=== PATIENT | male | born 1995 | race Caucasian/White ===

== ENCOUNTER 2021-12-09 16:16 | Outpatient (REF) | payer OTHER, SELFPAY ==
[2021-12-09 18:21] LABS: Alanine Aminotransferase 48 U/L (0-40); Albumin Level 4.6 g/dL (3.5-5.0); Alkaline Phosphatase 44 U/L (39-117); Anion Gap 13 (12-20); Aspartate Amino Transferase 31 U/L (5-37); Bilirubin Total 0.6 mg/dL (0.0-1.0); Blood Urea Nitrogen 12 mg/dL (9-16); Calcium 9.5 mg/dL (8.4-10.2); Carbon Dioxide 29 mmol/L (22-29); Chloride 101 mmol/L (96-108); Cholesterol 195 mg/dL; Estimated Glomerular Filt Rate > 60; Glucose Fasting 168 mg/dL (60-99); HDL Cholesterol 32 mg/dL; LDL Cholesterol Calculated 138 mg/dl; Potassium 4.3 mmol/L (3.3-5.1); Sodium 139 mmol/L (135-145); Total Protein 6.8 g/dL (6.5-8.0); Triglycerides 129 mg/dL
[2021-12-09 18:44] LABS: TSH reflex Free T4 4.36 uIU/mL (0.32-4.0)
[2021-12-09 19:17] LABS: Free T4 (Free Thyroxine) 1.07 ng/dL (0.71-1.85)
[2021-12-10 07:40] LABS: HBS Num1 40.88 mIU/mL (0-7.99); HBc Num1 0.04 S/CO (0.00-0.79); HBsAGNum1 0.18 S/CO (0.00-0.99); HIV AB/AG Nonreactive (Nonreactive); HIV Num 1 0.05 S/CO (0.00-0.99); Hepatitis B Core Antibody Nonreactive (Nonreactive); Hepatitis B Surface Antigen Negative (Negative); ~HepC Num1 0.05 S/CO (0.00-0.79); ~Hepatitis B Surface Antibody REACTIVE (Nonreactive); ~Hepatitis C Antibody Nonreactive (Nonreactive)
[2021-12-10 08:21] LABS: Syphilis Screen Nonreactive (Nonreactive)
== END 2021-12-09 16:17 | disposition home or self-care (01) ==
LOC: HO.LAB 16:16
PROVIDERS: PCP Family Medicine; Visit Provider Family Medicine
DX: Z00.00 Encounter for general adult medical examination without abnormal findings (principal); Z11.3 Encounter for screening for infections with a predominantly sexual mode of transmission; Z13.29 Encounter for screening for other suspected endocrine disorder; Z11.4 Encounter for screening for human immunodeficiency virus [HIV]; Z11.59 Encounter for screening for other viral diseases
CPT/HCPCS: 36415; 80053; 80061; 84439; 84443; 86704; 86706; 86780; 86803; 87340; 87389

== ENCOUNTER 2022-05-27 11:13 | Outpatient (REF) | payer OTHER, SELFPAY ==
[2022-05-27 12:56] LABS: Alanine Aminotransferase 44 U/L (0-40); Albumin Level 4.5 g/dL (3.5-5.0); Alkaline Phosphatase 55 U/L (39-117); Aspartate Amino Transferase 28 U/L (5-37); Bilirubin Direct 0.2 mg/dL (0.0-0.5); Bilirubin Total 0.9 mg/dL (0.0-1.0); Free T4 (Free Thyroxine) 0.92 ng/dL (0.71-1.85); Thyroid Stimulating Hormone 1.13 uIU/mL (0.32-4.0); Total Protein 6.6 g/dL (6.5-8.0)
[2022-05-27 14:45] LABS: Appearance Urine Clear; Color Urine Yellow; Glucose Urine UA >=1000 mg/dL (Negative); Leukocyte Esterase Urine Negative (Negative); Nitrite Urine Negative (Negative); PH 5.5 (5.0-9.0); UMIC TRIGGER UA YES; Urine Blood Negative (Negative); Urine Ketones Negative (Negative); Urine Protein Negative (Neg-Trace)
[2022-05-27 14:50] LABS: Bacteria Urine None Seen (None Seen); Hyaline Casts Urine 0-2 /LPF (0-2); RBC Urine 0-2 /HPF (0-2); Squamous Epithelial Cell Urine 0-2 /HPF (0-2); WBC Urine 0-5 /HPF (0-5)
[2022-05-28 07:23] LABS: Triiodothyronine T3 Total 101 ng/dL (76-181)
== END 2022-05-27 11:14 | disposition home or self-care (01) ==
LOC: HO.LAB 11:13
PROVIDERS: PCP Family Medicine; Visit Provider Family Medicine
DX: E03.9 Hypothyroidism, unspecified (principal); R79.89 Other specified abnormal findings of blood chemistry; R74.01 Elevation of levels of liver transaminase levels
CPT/HCPCS: 36415; 80076; 81001; 84439; 84443; 84480

== ENCOUNTER 2023-01-12 15:25 | Outpatient (AMB) | payer OTHER, SELFPAY ==
--- NOTE | 2023-01-12 15:42 | A.OFFPC_ITS ---
Vital Signs 01/12/23 15:44 Height 5 ft 5 in Weight 266 lb BMI 44.3 BP 114/66 Blood Pressure Location Lt brachial Position Sitting Pulse 86 Pulse Source Pulse Oximeter Pulse Oximetry (%) 99 Oxygen Delivery Method Room Air Intake Visit Reasons: f/u diabetes Intake Note: Patient is here to follow up on his diabetes. Allergies No Known Allergies Allergy (Verified 01/12/23 15:45) none Allergy (Mild, Uncoded 01/12/23 15:45) unknkown Seasonale Allergy (Mild, Uncoded 01/12/23 15:45) unknown Tobacco use date assessed: 01/12/23 Dental Screening Dental Screen Date: 01/12/23 Did you have a dental visit in the last 12 months?: Yes Did you have a dental problem in the last 6 months where you did not have access to dental care?: No Was dental information given to patient?: No HPI f/u diabetes HPI Details 27 y/o male presents to f/u diabetes. Last A1c 09/09/22 was 6.8%. A1c today 01/12/23 is 7.9%. He is on glipizide 5mg, metformin 250mg b.i.d. He reports he has not been consistent with his metformin as he has been busy the last few months. He does not test his blood sugars at home. [facility] Medical History Diabetes Surgical History History of tonsillectomy Family History Mother Mental health disorder Sister Mental health disorder Brother Mental health disorder Social History Housing: House Patient Tobacco Use Status: Never used Tobacco e-Cigarette/Vaping Use: Never Used Second Hand Smoke Exposure: No service: No Current occupational status: employed Current occupational exposures/hazards: No Cognitive needs: No Hearing needs: No Vision needs: No Questionnaire Thrive Questionnaire Date Thrive assessed: 10/23/21 LISA-7 AMB Questionnaire LISA-7 Date LISA - 7 assessed: 10/23/21 Source: Developed by Drs. Dimas Horton, Kimberly Downey, Bakari Lopez and colleagues, with an educational kobe from [employer]. Review of Systems Const Denies chills, Denies fatigue, Denies fever(s), Denies headache(s) and Denies weakness ENT Denies dizziness and Denies headache(s) Card Denies chest pain, Denies lightheadedness, Denies dyspnea and Denies other (Palpitations) Resp Denies cough, Denies dyspnea, Denies wheezing and Denies other ( shortness of breath) Musc Denies numbness and Denies tingling Neuro Denies dizziness, Denies headache(s), Denies numbness, Denies tingling, Denies paresthesias and Denies weakness Psych Denies anxiety and Denies depression Endo Denies fatigue Aller/Immun Denies wheezing Physical exam (Primary Care) Vital Signs: Last Vital Signs Pulse 86 01/12/23 15:44 BP 114/66 01/12/23 15:44 Pulse Ox 99 01/12/23 15:44 Oxygen Delivery Method Room Air 01/12/23 15:44 BMI result Body Mass Index 44.3 Tobacco/Smoking Status: Tobacco use Status Tobacco use date assessed 01/12/23 01/12/23 15:46 Patient Tobacco Use Status Never used Tobacco 01/12/23 15:44 e-Cigarette/Vaping Use Never Used 01/12/23 15:44 Thrive Assessment: Date of Thrive Assessment Date Thrive assessed 10/23/21 01/12/23 15:44 Const General: no acute distress and well developed Nutritional Appearance: obese morbidly obese Orientation/consciousness: patient oriented x3 HENMT Head: Yes normocephalic and Yes atraumatic Eyes General: appearance normal, both eyes and all related structures Pupils: Equal, round and reactive pupils present EOM: EOMs intact bilaterally Resp Effort & Inspection: normal respiratory effort Auscultation: clear to auscultation bilaterally Cardio Rate: regular rate Rhythm: regular rhythm Heart sounds: S1 normal heart sound present, S2 normal heart sound present, no gallops, no murmurs and no rubs Neuro General: patient oriented x3 and gait normal Cranial nerves: Yes Equal, round and reactive pupils present Psych Affect: normal affect Results AMB Hemoglobin A1c AMB Hemoglobin A1c 7.9 % Last Edit by Sasha Mcgill CMA on 01/12/23 16:20 Results Reviewed Results Reviewed: Laboratory Last Values Hgb A1c (Clinic) 7.9 % (4.0-6.0) H 01/12/23 16:19 Assessment and Plan Assessment & Plan (1) Diabetes: Code(s): E11.9 - Type 2 diabetes mellitus without complications Plan: A1c significantly increased at 7.9% He notes that he has been forgetting to take his medication and that he has only been taking metformin 250 mg in the morning rather than b.i.d.. Will try to simplify his regimen while increasing metformin. He will take metformin 500 mg daily and glipizide 5 mg daily, both in the morning He will work at a diabetic diet and weight loss We also discussed Trulicity. He would like to try the above regimen 1st but says we can reconsider this if he is still having difficulty. Orders: Orders AMB Hemoglobin A1c Today Z13.9 - Encounter for screening, unspecified Medications: Changed From metformin 250 mg (1/2 x 500 mg) PO BID 30 days 30 tabs 2RF To metformin 500 mg PO QAM 30 days 30 tabs 2RF Refilled glipizide 5 mg PO DAILY 30 tabs 1RF 30 days Coding Level of Care Code Est Pt Level 3 (29023) Diagnoses Diabetes E11.9
[2023-01-12 15:44] VITALS: BP 114/66; PULSE 86; O2SAT 99; BMI 44.3
== END 2023-01-12 16:31 | disposition home or self-care (01) ==
PROVIDERS: PCP Family Medicine; Visit Provider Family Medicine
DX: E11.9 Type 2 diabetes mellitus without complications (principal); Z13.9 Encounter for screening, unspecified
CPT/HCPCS: 83036; 99213

== ENCOUNTER 2023-03-31 11:25 | Outpatient (REF) | payer OTHER, SELFPAY ==
[2023-03-31 14:19] LABS: Alanine Aminotransferase 40 U/L (0-40); Albumin Level 4.5 g/dL (3.5-5.0); Alkaline Phosphatase 42 U/L (39-117); Anion Gap 12 (12-20); Aspartate Amino Transferase 27 U/L (5-37); Bilirubin Total 0.7 mg/dL (0.0-1.0); Blood Urea Nitrogen 9 mg/dL (9-16); Calcium 8.9 mg/dL (8.4-10.2); Carbon Dioxide 26 mmol/L (22-29); Chloride 104 mmol/L (96-108); Estimated Glomerular Filt Rate > 60; Glucose Fasting 118 mg/dL (60-99); Potassium 4.2 mmol/L (3.3-5.1); Sodium 138 mmol/L (135-145); Total Protein 6.8 g/dL (6.5-8.0)
== END 2023-03-31 11:26 | disposition home or self-care (01) ==
LOC: HO.LAB 11:25
PROVIDERS: PCP Family Medicine; Visit Provider Family Medicine
DX: Z00.00 Encounter for general adult medical examination without abnormal findings (principal); R74.01 Elevation of levels of liver transaminase levels
CPT/HCPCS: 36415; 80053

== ENCOUNTER 2023-06-01 11:22 | Outpatient (AMB) | payer OTHER, SELFPAY ==
--- NOTE | 2023-06-01 11:32 | MHC.PC.OV ---
Vital Signs 06/01/23 11:33 Height 5 ft 5 in Weight 157 lb BMI 26.1 BP 112/60 Blood Pressure Location Lt brachial Position Sitting Respiration 13 Pulse 94 Pulse Source Pulse Oximeter Pulse Oximetry (%) 98 Oxygen Delivery Method Room Air Intake Visit Reasons: f/u diabetes Intake Note: Patient reports he has not been able to receive his medications for about 3 weeks now. Patient admits to having difficulties with diet control around the holidays. 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 A1c today 06/01/23 7.7%. He is on metformin 500mg and glipizide 5mg daily. He notes he has not been able to take his meds the last 3 weeks. Pt notes he had hurt his R shoulder 3 months ago helping a friend move. Pain has been intermittent. [facility] Medical History Diabetes Surgical History History of tonsillectomy Family History Mother Mental health disorder Sister Mental health disorder Brother Mental health disorder Social History Housing: House Patient Tobacco Use Status: Never used Tobacco e-Cigarette/Vaping Use: Never Used Second Hand Smoke Exposure: No service: No Current occupational status: employed Current occupational exposures/hazards: No Cognitive needs: No Hearing needs: No Vision needs: No Questionnaire Thrive Questionnaire Date Thrive assessed: 10/23/21 LISA-7 AMB Questionnaire LISA-7 Date LISA - 7 assessed: 10/23/21 Source: Developed by Drs. Dimas Horton, Kimberly Downey, Bakari Lopez and colleagues, with an educational kobe from [employer]. Physical exam (Primary Care) Vital Signs: Last Vital Signs Pulse 94 06/01/23 11:33 Resp 13 06/01/23 11:33 BP 112/60 06/01/23 11:33 Pulse Ox 98 06/01/23 11:33 Oxygen Delivery Method Room Air 06/01/23 11:33 BMI result Body Mass Index 26.1 Tobacco/Smoking Status: Tobacco use Status Tobacco use date assessed 01/12/23 06/01/23 11:34 Patient Tobacco Use Status Never used Tobacco 06/01/23 11:34 e-Cigarette/Vaping Use Never Used 06/01/23 11:34 Thrive Assessment: Date of Thrive Assessment Date Thrive assessed 10/23/21 06/01/23 11:34 Results AMB Hemoglobin A1c AMB Hemoglobin A1c 7.7 % Last Edit by Yane Arevalo CMA on 06/01/23 11:48 Results Reviewed Results Reviewed: Laboratory Last Values Hgb A1c (Clinic) 7.7 % (4.0-6.0) H 06/01/23 11:45 Assessment and Plan Assessment & Plan (1) Diabetes: Code(s): E11.9 - Type 2 diabetes mellitus without complications Plan: A1c?7.7%?which?is?poor?control.??Goal?is?less?than?7.0% Resume?metformin?and?will?add?Trulicity. Can?stop?glipizide We?discussed?that?if?he?is?unable?to?get?Trulicity?covered?by?insurance,?he?will?resume?glipizide?as?well?and?we?will?follow-up?at?his?next?visit. Will?request?note?from?his?neurological surgeon (2) Right shoulder pain: Code(s): M25.511 - Pain in right shoulder Plan: Start?physical?therapy If?not?improving,?will?image?and?make?referral?to?Ortho (3) Tenosynovitis of left hand: Code(s): M65.9 - Synovitis and tenosynovitis, unspecified Plan: Ongoing?tendinitis,?tenosynovitis?or?carpal?tunnel?of?bilateral?hands. Had?been?referred?to?Hand?surgery?but?has?not?heard?from?them. Renewed?referral.??Gave?him?phone?number Orders: Orders PT Evaluation and Treatment Today M25.511 - Pain in right shoulder AMB Hemoglobin A1c Today Z13.9 - Encounter for screening, unspecified Medications: New dulaglutide (Trulicity) 0.75 mg (0.5 mL) subcut QWEEK 28 days 2 mL 2RF Refilled metformin 500 mg PO QAM 30 days 30 tabs 2RF Coding Level of Care Code Est Pt Level 4 (04467) Diagnoses Diabetes E11.9 Right shoulder pain M25.511 Tenosynovitis of left hand M65.9
[2023-06-01 11:33] VITALS: BP 112/60; PULSE 94; RESP 13; O2SAT 98; BMI 26.1
== END 2023-06-01 12:39 | disposition home or self-care (01) ==
PROVIDERS: PCP Family Medicine; Visit Provider Family Medicine
DX: E11.9 Type 2 diabetes mellitus without complications (principal); M25.511 Pain in right shoulder; M65.9 Synovitis and tenosynovitis, unspecified
CPT/HCPCS: 83036; 99214

== ENCOUNTER 2023-06-27 08:23 | Emergency (ER) | payer OTHER, SELFPAY ==
--- NOTE | ~2023-06-27 | XR_ITS ---
EXAMINATION: XR TIBIA/FIBULAR, RIGHT XR ANKLE, RIGHT CLINICAL INFORMATION: Right lower leg and right ankle pain. Injury. COMPARISON: None. TECHNIQUE: AP and lateral views of the right tibia and fibula. AP and lateral views of the right ankle. FINDINGS: Right tibia and fibula: No acute fracture or dislocation. No periosteal reaction or cortical erosion. No abnormal soft tissue calcification. Right ankle: Nondisplaced, transverse fracture through the distal fibula/lateral malleolus. No additional fracture. No dislocation. The ankle mortise is maintained. No joint space narrowing or marginal osteophytes. No osseous erosion. Tiny dorsal calcaneal enthesophyte. Circumferential soft tissue swelling. XR/XR tibia fibula RT 2V IMPRESSION: Nondisplaced, transverse fracture through the distal fibula/lateral malleolus. Circumferential soft tissue swelling.
--- NOTE | ~2023-06-27 | XR_ITS ---
EXAMINATION: XR TIBIA/FIBULAR, RIGHT XR ANKLE, RIGHT CLINICAL INFORMATION: Right lower leg and right ankle pain. Injury. COMPARISON: None. TECHNIQUE: AP and lateral views of the right tibia and fibula. AP and lateral views of the right ankle. FINDINGS: Right tibia and fibula: No acute fracture or dislocation. No periosteal reaction or cortical erosion. No abnormal soft tissue calcification. Right ankle: Nondisplaced, transverse fracture through the distal fibula/lateral malleolus. No additional fracture. No dislocation. The ankle mortise is maintained. No joint space narrowing or marginal osteophytes. No osseous erosion. Tiny dorsal calcaneal enthesophyte. Circumferential soft tissue swelling. XR/XR ankle RT min 3V IMPRESSION: Nondisplaced, transverse fracture through the distal fibula/lateral malleolus. Circumferential soft tissue swelling.
--- NOTE | ~2023-06-27 | XR_ITS ---
EXAMINATION: XR FOOT, RIGHT CLINICAL INFORMATION: Crush injury to the right foot. COMPARISON: Right ankle x-rays of 06/27/2023. TECHNIQUE: AP, lateral, and oblique views of the right foot. FINDINGS: There is no evidence of acute fracture or dislocation. No focal erosion. Small tear calcaneal spur is noted at the insertion of plantar aponeurosis. No evidence of soft tissue air or radiopaque foreign body. The osseous structures grossly appear unremarkable. No degenerative or arthritic changes are seen. XR/XR foot RT min 3V IMPRESSION: No evidence of acute fracture or dislocation in the right foot. Right distal fibular nondisplaced fracture noted on the ankle radiographs is not appreciated on these foot radiographs.
[2023-06-27 08:33] VITALS: BP 143/79; PULSE 85; RESP 16; TEMP 36.2; O2SAT 97; BMI 42.3
--- NOTE | 2023-06-27 09:34 | ED_ITS ---
HPI - Extremity Injury (Lower) General Chief Complaint: Extremity Injury, Lower Stated Complaint: R foot inj-work related Time Seen by Provider: 06/27/23 09:04 Source: patient, RN notes reviewed and old records reviewed Mode of arrival: ambulatory History of Present Illness HPI Narrative: 28-year-old male with a past medical history of anxiety, depression, diabetes, HLD, presenting to the ED complaining of right foot/ankle/lower leg pain and swelling s/p being crushed between a Pallet [employer]omy and trailer 2 days ago at work. Reports increasing pain, difficulty ambulating secondary to pain. Denies numbness, tingling, injury to other area Related Data Previous Rx's Medication Instructions Recorded glipizide 5 mg tablet 5 mg PO DAILY 30 days #30 tabs 01/12/23 dulaglutide 0.75 mg/0.5 mL 0.75 mg (0.5 mL) subcut QWEEK 28 06/01/23 subcutaneous pen injector days #2 mL (Trulicity) metformin 500 mg tablet 500 mg PO QAM 30 days #30 tabs 06/01/23 Allergies Allergy/AdvReac Type Severity Reaction Status Date / Time No Known Allergies Allergy Verified 06/27/23 08:33 Review of Systems Review of Systems: Constitutional: No Fever, No Chills ENT/Mouth: No Ear Pain, No Nasal Congestion, No sore throat, No Rhinorrhea, No Swallowing Difficulty Cardiovascular: No Chest Pain, No SOB Respiratory: No Cough Gastrointestinal: No Nausea, No Vomiting, No Abdominal pain Musculoskeletal: + joint pain, No Myalgias, + Joint Swelling Skin: No Skin Lesions, No rash Neuro: No Weakness, No Numbness, No Paresthesias Yes all other systems are reviewed and are negative Constitutional: Constitutional: Reports as per HPI [facility] Past Medical History Attestation statement: The following information was validated with the patient. Source: old records reviewed Medical History Diabetes Surgical History History of tonsillectomy Family History Family History Mother Mental health disorder Sister Mental health disorder Brother Mental health disorder Social History Social History Housing: House Patient Tobacco Use Status: Never used Tobacco e-Cigarette/Vaping Use: Never Used Second Hand Smoke Exposure: No Advance Directives: No service: No Current occupational status: employed Current occupational exposures/hazards: No Cognitive needs: No Hearing needs: No Vision needs: No Physical Exam Vital Signs: Vital Signs: Last Vital Signs Temp 97.2 F 06/27/23 08:33 Pulse 85 06/27/23 08:33 Resp 16 06/27/23 08:33 BP 143/79 H 06/27/23 08:33 Pulse Ox 97 06/27/23 08:33 O2 Del Method Room Air 06/27/23 08:33 BMI result Body Mass Index 42.3 Const: General: cooperative, healthy appearing and no acute distress Orientation/consciousness: patient oriented x3 Limitations: no limitations HEENT: Head: Yes normal to inspection and Yes atraumatic Ears: hearing grossly normal bilaterally General nose exam: Normal external nose present Face and sinus: Yes normal facial exam Eyes: General: appearance normal, both eyes and all related structures EOM: EOMs intact bilaterally Neck: Neck: Yes normal visual inspection and Yes no meningeal signs Resp: Effort & Inspection: normal respiratory effort and no respiratory distress Cardio: Rate: regular rate Skin: Rashes: no rashes Wounds: no wounds Neuro: General: patient oriented x3, tone normal and no meningeal signs Cranial nerves: Yes CN's II-XII intact bilaterally Gait exam (Neuro): Normal gait present Extrem: Other: Right lower tib-fib/ankle and foot with noted swelling, diffusely tender to palpation, greatest to lateral aspect. Limited ROM to ankle secondary to pain. No erythema/warmth. Neurovascularly intact. No crepitus Course Course Course Narrative: XR tibia fibula RT 2V/XR ankle RT min 3V IMPRESSION: Nondisplaced, transverse fracture through the distal fibula/lateral malleolus. Circumferential soft tissue swelling XR foot RT min 3V IMPRESSION: No evidence of acute fracture or dislocation in the right foot. Right distal fibular nondisplaced fracture noted on the ankle radiographs is not appreciated on these foot radiographs. > posterior short leg w/stirrup placed & patient supplied with crutches Results discussed with patient including worrisome signs and symptoms and strict return precautions, and when to return to the emergency department. They verbalized understanding and feel safe for discharge at this time. Medical Decision Making Medical Decision Making MDM Narrative: 28-year-old male with a past medical history of anxiety, depression, diabetes, HLD, presenting to the ED complaining of right foot/ankle/lower leg pain and swelling s/p being crushed between a Pallet [employer] and trailer 2 days ago at work. On exam vital signs stable, NAD, nontoxic appearing with physical exam as noted above. Concern for sprain versus fracture. No evidence of septic joint/arthritis. Unlikely DVT Plan: X-rays Please refer to course for remaining clinical decision making, interpretation of labs/imaging results, and discussions with consultants and/or family members. Differential Diagnosis Differential Diagnoses: The differential diagnosis associated with the presentation includes As above Independent Interpretation I performed an independent interpretation of an: Plain X-Ray Radiology Impression Discussion of test interpretation with radiology: I have reviewed the radiologist's reading. External Record Review External record reviewed: Inpatient record, Office record, Outpatient record, Prior outpatient labs, Prior outpatient radiology, Primary care record and Outside ED record Tests considered The following testing was considered but not selected: As above Prescription Management I considered prescription management with: Pain Medication Procedures Orthopedic Splinting/Casting Injury #1: Side: right Lower Extremity Injury Location: ankle Lower Extremity Immobilizer: posterior splint and stirrup splint Other Orthopedic Equipment: crutches Discharge Plan Discharge Clinical Impression: Fracture of lateral malleolus Patient Disposition: Home, Self-Care Instructions: Ankle Fracture (DC) Additional Instructions: you broke your ankle. wear splint, keep dry and clean DO NOT BEAR WEIGHT ON YOUR LEFT LEG UNTIL YOU SEE THE SPECALIST if toes become increasingly swollen, discolored, number pain is unbearable removed plan return to the ED immediately You need to follow-up with [facility] in 1 week, call to make appointment Prescriptions: No Action glipizide 5 mg tablet 5 mg PO DAILY 30 Days Qty: 30 1RF Trulicity 0.75 mg/0.5 mL pen injector 0.75 mg subcut QWEEK 28 Days Qty: 2 2RF metformin 500 mg tablet 500 mg PO QAM 30 Days Qty: 30 2RF Referrals: [facility] Surgeons [Provider Group] - 1 week
[2023-06-27] MEDS: oxyCODONE HCl Immed Release 5 MG TABLET PO (11:43)
[2023-06-27] MEDS: Ondansetron ODT 4 MG TAB.RAPDIS TRANSLINGU (11:44)
== END 2023-06-27 12:06 | disposition home or self-care (01) ==
PROVIDERS: Emergency Provider Emergency Medicine; PCP Family Medicine
DX: S82.61XA Displaced fracture of lateral malleolus of right fibula, initial encounter for closed fracture (principal); E11.9 Type 2 diabetes mellitus without complications; W31.89XA Contact with other specified machinery, initial encounter; Y93.9 Activity, unspecified; Y92.9 Unspecified place or not applicable; Y99.0 Civilian activity done for income or pay
CPT/HCPCS: 29515; 73590; 73610; 73630; 99283

== ENCOUNTER 2023-07-08 10:21 | Outpatient (AMB) | payer OTHER, SELFPAY ==
--- NOTE | 2023-07-08 10:34 | A.OFFVIS_ITS ---
Intake Vital Signs 07/08/23 10:43 Height 5 ft 6 in Weight 262 lb BMI 42.3 Intake Visit Reasons: [employer]- Fx of right ankle Intake Note: Dimas heck 28 year old male presents today for an ER follow up of left ankle, DOI 06/25/23. Patient reports while at work his leg was crushed between a pallet rickey and trailer. He presented to [facility] 2 days later due to his leg pain and swelling. He was placed in a posterior splint and crutches were given. Currently he has constant pain that fluctuates in intensity, located at the lateral aspect of ankle. Intermittent numbness and tingling in his bog toe. Finds relief with ibuprofen. Allergies No Known Allergies Allergy (Verified 07/08/23 10:43) HPI [employer] IN[employer]ER- Fx of right ankle HPI Details 56-year-old female [facility] pain since February after doing home exercises which was instructed by physical therapy for her back. She currently states she has no improvement in her pain and c/o pain in her bicep region which fluctuates in intensity. Her pain is aggravated with activities about 80% of the time. She also reports pain with overhead reaching as well as reaching her sides to pick the remote. She finds relief with Advil most of the time. She has not had any treatment in the past. [facility] Medical History Diabetes Surgical History History of tonsillectomy Family History Mother Mental health disorder Sister Mental health disorder Brother Mental health disorder Social History (Updated 07/08/23 @ 10:40 by MAXIMUS Gomez) Housing: House Patient Tobacco Use Status: Never used Tobacco e-Cigarette/Vaping Use: Never Used Second Hand Smoke Exposure: No service: No Current occupational status: employed Current occupation: [employer] Current occupational exposures/hazards: No Cognitive needs: No Hearing needs: No Vision needs: No Review of Systems Const All systems reviewed & are unremarkable except as noted in HPI and below Physical Exam Vital Signs: BMI result Body Mass Index 42.3 Const General: cooperative, healthy appearing, comfortable, no acute distress, well developed and alert Orientation/consciousness: patient oriented x3 HEENT Head: Yes normal to inspection, Yes normocephalic and Yes atraumatic Eyes General: appearance normal, both eyes and all related structures Resp Effort & Inspection: normal respiratory effort and able to speak in complete sentences Cardio Rate: regular rate Peripheral pulses: Peripheral pulses 2+ throughout GI Palpation (GI): Soft to palpation Skin Lesions: no lesions Rashes: no rashes Neuro General: patient oriented x3 Extrem Other: Right ankle Normal to inspection. He has mild tenderness over the distal fibula. No ecchymosis or swelling. NVI. Office Procedures Fracture Care Fracture Billing Code: Fracture Billing Code Results Reviewed Results Reviewed: Xrays were obtained in the office today and personally reviewed by me of the right ankle show non displaced distal fibular fracture with ankle mortise intact Assessment & Plan Assessment & Plan (1) Closed fracture of left distal fibula: Code(s): S82.832A - Other fracture of upper and lower end of left fibula, initial encounter for closed fracture Qualifiers: Encounter type: initial encounter Fracture morphology: other fracture Qualified Code(s): S82.832A - Other fracture of upper and lower end of left fibula, initial encounter for closed fracture Plan He was given a tall boot weight bearing as tolerated. He can remove the boot for hygiene, resting and sleeping. I did put in an order for physical therapy to work on stretching exercises and iontophoresis. He will return to work tomorrow, sedentary work only with opportunity to ice and elevate the right leg as needed. I would like to see him back in 4-6 weeks with x-rays, sooner if needed. Orders: Orders XR ankle RT min 3V Today M25.571 - Pain in right ankle and joints of right foot PT Evaluation and Treatment Today S82.832A - Other fracture of upper and lower end of left fibula, initial encounter for closed fracture Medications: Changed From ibuprofen 800 mg PO Q8H PRN 14 tabs 0RF pain To ibuprofen 800 mg PO Q8H PRN 90 tabs 0RF pain 30 days Patient Instructions: Scribed for Dione Peraza PA-C, by Rojelio Ramírez director biomedical engineering, on 07/08/2023 at 10:30 AM ROSSY. Dione Long PA-C, have personally reviewed and agree with the information entered by the scribe. Coding Level of Care Code New Pt Level 3 (04004) Diagnoses Other closed fracture of distal end of left fibula, initial encounter S82.832A Encounter type: initial encounter Fracture morphology: other fracture CPT Codes Fracture Care - Fracture Billing Code: Fracture Billing Code ([id number])
[2023-07-08 10:43] VITALS: BMI 42.3
== END 2023-07-08 11:14 | disposition home or self-care (01) ==
PROVIDERS: PCP Family Medicine; Visit Provider Physician Assistant
DX: S82.65XA Nondisplaced fracture of lateral malleolus of left fibula, initial encounter for closed fracture (principal); Z04.2 Encounter for examination and observation following work accident
CPT/HCPCS: 99203

== ENCOUNTER 2023-07-08 12:36 | Outpatient (REF) | payer OTHER, SELFPAY ==
--- NOTE | ~2023-07-08 | XR_ITS ---
EXAMINATION: XR ANKLE, RIGHT CLINICAL INFORMATION: Pain of ankle and joints of foot COMPARISON: 06/27/2023 TECHNIQUE: AP, lateral, and mortise views of the right ankle. FINDINGS: Interval decreased soft tissue swelling around the ankle. Again noted is a transverse fracture of the distal fibula (Mcbride A injury) with distal fibular fragment remaining in anatomic position. Currently, there is no visible callus formation. There is no bridging bone formation at the fracture site. The talar dome is well-positioned within the mortise. The visualized bones of the proximal foot are intact and have normal alignment. XR/XR ankle RT min 3V IMPRESSION: Interval decreased soft tissue swelling at the right ankle. The distal fibular fragment remains in anatomic position. Currently, no evidence of fracture healing.
== END 2023-07-08 12:37 | disposition home or self-care (01) ==
LOC: HO.HOSX 12:36
PROVIDERS: Visit Provider Physician Assistant
DX: S82.832A Other fracture of upper and lower end of left fibula, initial encounter for closed fracture (principal); M25.511 Pain in right shoulder; W23.0XXA Caught, crushed, jammed, or pinched between moving objects, initial encounter; Y93.9 Activity, unspecified; Y92.9 Unspecified place or not applicable; Y99.0 Civilian activity done for income or pay
CPT/HCPCS: 73610; 99202

== ENCOUNTER 2023-08-05 09:34 | Outpatient (REF) | payer OTHER, SELFPAY ==
--- NOTE | ~2023-08-05 | XR_ITS ---
EXAMINATION: XR ANKLE, LEFT CLINICAL INFORMATION: Pain. COMPARISON: Prior radiographs, most recently 07/08/2023. TECHNIQUE: AP, lateral, and mortise views of the left ankle. FINDINGS: There is stable alignment of a mildly displaced transverse fracture of the distal right fibula. The ankle mortise remains intact. There is no dislocation or joint effusion. Boehler's angle is normal. There is a minimal posterior calcaneal spur. There is mild soft tissue swelling adjacent to the lateral malleolus. No focal soft tissue gas or foreign body is seen. XR/XR ankle LT min 3V IMPRESSION: There is stable alignment of a mildly displaced fracture of the distal right fibula. There is mild adjacent soft tissue swelling.
== END 2023-08-05 09:35 | disposition home or self-care (01) ==
LOC: HO.HOSX 09:34
PROVIDERS: Visit Provider Physician Assistant
DX: S82.832A Other fracture of upper and lower end of left fibula, initial encounter for closed fracture (principal)
CPT/HCPCS: 73610; 99212

== ENCOUNTER 2023-08-05 12:00 | Outpatient (AMB) | payer OTHER, SELFPAY ==
--- NOTE | 2023-08-05 12:30 | MHC.OFFVIS ---
Intake Intake Visit Reasons: OV-Right dis fib fx w xrays Intake Note: Dimas heck 28 year old male presents today for a follow up of right distal fibula fx, DOI --. Patient reports having tenderness to the touch, states pain level is 1-2 out of 10. Continues to wear walking boot as instructed. He not started PT. Allergies No Known Allergies Allergy (Verified 08/05/23 12:34) HPI OV-Right dis fib fx w xrays HPI Details 28-year-old gentleman returns to the office for a follow-up right ankle fracture. He has been ambulating weight-bearing as tolerated with the boot he states that he has no pain with walking he only feels mild discomfort occasionally. He has no concerns today. [facility] Medical History Diabetes Surgical History History of tonsillectomy Family History Mother Mental health disorder Sister Mental health disorder Brother Mental health disorder Social History Housing: House Patient Tobacco Use Status: Never used Tobacco e-Cigarette/Vaping Use: Never Used Second Hand Smoke Exposure: No service: No Current occupational status: employed Current occupation: [employer] Current occupational exposures/hazards: No Cognitive needs: No Hearing needs: No Vision needs: No Review of Systems Const All systems reviewed & are unremarkable except as noted in HPI and below Physical Exam Const General: cooperative and no acute distress Orientation/consciousness: patient oriented x3 Resp Effort & Inspection: normal respiratory effort and able to speak in complete sentences Cardio Peripheral pulses: Peripheral pulses 2+ throughout Neuro General: patient oriented x3 Extrem Other: Right ankle normal to inspection. No swelling or ecchymosis. He has no tenderness along the lateral malleolus or the soft tissues. Has full range of motion without crepitus or laxity. Neurovascularly intact. Results Reviewed Results Reviewed: X-rays of the right ankle obtained in the office today show interval healing through the distal fibular fracture with ankle mortise intact. Assessment & Plan Assessment & Plan (1) Closed fracture of left distal fibula: Code(s): S82.832A - Other fracture of upper and lower end of left fibula, initial encounter for closed fracture Qualifiers: Encounter type: initial encounter Fracture morphology: other fracture Qualified Code(s): S82.832A - Other fracture of upper and lower end of left fibula, initial encounter for closed fracture Plan: He was transitioned to a lace-up ankle brace which he will wear with a shoe weightbearing as tolerated will return to work on August 09 however he will avoid any lifting pushing pulling or carrying greater than 5 lb for the next 4-6 weeks. At which point he will see me back for a follow-up with new x-rays. A new order for physical therapy has been placed and I did stress the importance of contacting them to schedule an appointment to work on range of motion gentle strengthening proprioceptive training. Orders: Orders XR ankle LT min 3V Today M25.572 - Pain in left ankle and joints of left foot Coding Level of Care Code Global (44963) Diagnoses Other closed fracture of distal end of left fibula, initial encounter S82.832A Encounter type: initial encounter Fracture morphology: other fracture
== END 2023-08-05 13:07 | disposition home or self-care (01) ==
PROVIDERS: PCP Family Medicine; Visit Provider Physician Assistant
DX: S82.831A Other fracture of upper and lower end of right fibula, initial encounter for closed fracture (principal)
CPT/HCPCS: 99213

== ENCOUNTER 2023-09-01 11:18 | Outpatient (AMB) | payer OTHER, SELFPAY ==
[2023-09-01 11:58] VITALS: BP 131/72; PULSE 68; O2SAT 94; BMI 43.8
--- NOTE | 2023-09-01 11:58 | A.OFFPC_ITS ---
Vital Signs 09/01/23 11:58 Height 5 ft 6 in Weight 271 lb 8 oz BMI 43.8 BP 131/72 Blood Pressure Location Lt brachial Pulse 68 Pulse Source Pulse Oximeter Pulse Oximetry (%) 94 Intake Visit Reasons: f/u diabetes Intake Note: Patient is here today to follow up on diabetes. Allergies No Known Allergies Allergy (Verified 09/01/23 12:00) Tobacco use date assessed: 09/01/23 HPI f/u diabetes HPI Details 28 y/o male presents to f/u diabetes. Had started him on Trulicity and increased his metformin. Last A1c 06/01/23 7.7%. A1c today 09/01/23 is 9.9%. Pt states he has picked up his Trulicity but has not trialed it yet as he had be en anxious about taking it. He has also stopped taking his glipizide 5mg daily so he has only been taking metformin. HPI Comments History of Present Illness Details Documentation assistance for Iggy Martinez MD, was provided by Jarvis Guillen, [employer]urtass Analyst on 09/01/2023 12:42 PM EST. I, Dr. Martinez, have read, observed, and verified documentation. [facility] Medical History Diabetes Surgical History History of tonsillectomy Family History Mother Mental health disorder Sister Mental health disorder Brother Mental health disorder Social History Housing: House Patient Tobacco Use Status: Never used Tobacco e-Cigarette/Vaping Use: Never Used Second Hand Smoke Exposure: No service: No Current occupational status: employed Current occupation: [employer] Current occupational exposures/hazards: No Cognitive needs: No Hearing needs: No Vision needs: No Questionnaire PHQ-9 Over the last 2 weeks, how often have you been bothered by any of the following problems? 1. Little interest or pleasure in doing things: not at all 2. Feeling down, depressed, or hopeless: not at all 3. Trouble falling or staying asleep, or sleeping too much: not at all 4. Feeling tired or having little energy: not at all 5. Poor appetite or overeating: not at all 6. Feeling bad about yourself - or that you are a failure or have let yourself or your family down: not at all 7. Trouble concentrating on things, such as reading the newspaper or watching television: not at all 8. Moving or speaking so slowly that other people could have noticed. Or the opposite - being so fidgety or restless that you have been moving around a lot more than usual: not at all 9. Thoughts that you would be better off or of hurting yourself in some way: not at all Total score: 0 Depression Screening Interpretation: Negative Depression Screening Done: Yes Source: Developed by Drs. Dimas Horton, Kimberly Downey, Bakari Lopez and colleagues, with an educational kobe from [employer]. Thrive Questionnaire Date Thrive assessed: 09/01/23 I am a: Patient What is your living situation today?: I have a steady place to live Within the past 12 months, did the food you bought not last and you didn't have the money to get more?: Never true Within the past 12 months, did you worry whether your food would run out before you got money to buy more?: Never true Do you have trouble paying for medicines?: No Do you have trouble getting transportation to medical appointments?: No Do you have trouble paying your heating and electricity bill?: No Do you have trouble taking care of your child, family member or friend?: No Do you have trouble with day-to-day activities such as bathing, preparing meals, shopping, managing finances, etc.?: No Are you currently unemployed and looking for a job?: No Are you interested in more education?: No THRIVE Score: 0 AUDIT C Alcohol Use Questionnaire (AUDIT-C) 1. How often do you have a drink containing alcohol?: Monthly or less 2. How many drinks containing alcohol do you have on a typical day when you are drinking?: 3 or 4 3. How often do you have six or more drinks on one occasion?: Never Total Score: 2 LISA-7 AMB Questionnaire LISA-7 Date LISA - 7 assessed: 09/01/23 Feeling nervous, anxious, or on edge: 0 = Not at all Not being able to stop or control worryin = Not at all Worrying too much about different things: 0 = Not at all Trouble relaxin = Not at all Being so restless that it is hard to sit still: 0 = Not at all Becoming easily annoyed or irritable: 0 = Not at all Feeling afraid as if something awful might happen: 0 = Not at all Total LISA-7 score (0-4 normal; 5-9 mild; 10-14 moderate; 15-21 severe): 0 Source: Developed by Drs. Dimas Horton, Kimberly Downey, Bakari Lopez and colleagues, with an educational kobe from [employer]. Review of Systems Const Denies chills, Denies fatigue, Denies fever(s), Denies headache(s) and Denies weakness ENT Denies dizziness and Denies headache(s) Card Denies dyspnea Resp Denies cough, Denies dyspnea, Denies wheezing and Denies other (shortness of breath) Musc Denies numbness and Denies tingling Neuro Denies dizziness, Denies headache(s), Denies numbness, Denies tingling and Denies weakness Psych Denies anxiety and Denies depression Endo Denies fatigue Aller/Immun Denies wheezing Physical exam (Primary Care) Vital Signs: Last Vital Signs Pulse 68 09/01/23 11:58 BP 131/72 09/01/23 11:58 Pulse Ox 94 09/01/23 11:58 BMI result Body Mass Index 43.8 Tobacco/Smoking Status: Tobacco use Status Tobacco use date assessed 09/01/23 09/01/23 12:01 Patient Tobacco Use Status Never used Tobacco 09/01/23 11:59 e-Cigarette/Vaping Use Never Used 09/01/23 11:59 PHQ-9: PHQ-9 Score PHQ-9: Total score 0 09/01/23 12:42 Depression Screening Interpretation: Negative Thrive Assessment: Date of Thrive Assessment Date Thrive assessed 09/01/23 09/01/23 12:05 Const General: well developed; No acute distress Nutritional Appearance: well nourished and obese morbidly obese Orientation/consciousness: patient oriented x3 HENMT Head: Yes normocephalic and Yes atraumatic Eyes General: appearance normal, both eyes and all related structures Pupils: Equal, round and reactive pupils present EOM: EOMs intact bilaterally Resp Effort & Inspection: normal respiratory effort Auscultation: clear to auscultation bilaterally Cardio Rate: regular rate Rhythm: regular rhythm Heart sounds: S1 normal heart sound present, S2 normal heart sound present, no gallops, no murmurs and no rubs Neuro General: patient oriented x3 and gait normal Cranial nerves: Yes Equal, round and reactive pupils present Psych Affect: normal affect Results AMB Hemoglobin A1c AMB Hemoglobin A1c 9.9 % Last Edit by Yane Arevalo CMA on 09/01/23 12:30 Results Reviewed Results Reviewed: Laboratory Last Values Hgb A1c (Clinic) 9.9 % (4.0-6.0) H 09/01/23 12:15 Assessment and Plan Assessment & Plan (1) Uncontrolled diabetes mellitus with hyperglycemia: Code(s): E11.65 - Type 2 diabetes mellitus with hyperglycemia Plan: It?appears?that?patient?did?not?take?Trulicity,?stopped?the?glipizide?and?has?ru n?out?of?metformin?though?more?recently. At?the?same?time,?he?had?a?fibu lar?fracture?and?has?been?less?mobile?and?gained?about?10?lb. A1c?increased?from?7.7%?to?9.9%. Had?a?discussion?with?him?regarding?Trulicity?and?he?is?apprehensive?about?tryin g?it.??He?says?he?thinks?he?has?a?friend?who?would?help?him?inject?once?a?week. Will?ask?the?nurse?navigator?to?do?some?teaching?regarding?Trulicity?administrat ion?and?hopefully?he?can?have?his?friend?present?for?this. Will?refill?metformin?and?glipizide. Close?follow-up?in?1?month?to?ensure?he?is?able?to?implement?plan. (2) Balanitis: Code(s): N48.1 - Balanitis Plan: Will?give?him?a?script?for?clotrimazole Avoid?excess?moisture Change?undergarments?twice?per?day Control?blood?sugar Orders: Orders AMB Hemoglobin A1c Today Z13.9 - Encounter for screening, unspecified Medications: New clotrimazole 1% (Antifungal (clotrimazole)) 1 appl topical BID 60 grams 0RF 2 weeks Refilled dulaglutide (Trulicity) 0.75 mg (0.5 mL) subcut QWEEK 28 days 2 mL 2RF glipizide 5 mg PO DAILY 30 tabs 1RF 30 days metformin 500 mg PO QAM 30 tabs 2RF 30 days Coding Level of Care Code Est Pt Level 3 (53705) Diagnoses Uncontrolled diabetes mellitus with hyperglycemia E11.65 Jeb N48.1
== END 2023-09-01 13:05 | disposition home or self-care (01) ==
PROVIDERS: PCP Family Medicine; Visit Provider Family Medicine
DX: E11.65 Type 2 diabetes mellitus with hyperglycemia (principal); N48.1 Balanitis
CPT/HCPCS: 83036; 99213

== ENCOUNTER 2023-09-08 14:00 | Outpatient (RCR) | payer OTHER, SELFPAY ==
--- NOTE | 2023-08-13 14:14 | MHC.PT.EP ---
[facility] [place] Office [place] Office [place] Office [address] Rosalino Garcias [address] [phone] F: [phone] F: [phone] F: [phone] F: [phone] Physical Therapy Plan of Care Date of Evaluation: 08/13/23 Date of Surgery: Diagnosis: Rt Nondisplaced, transverse fracture through the distal fibula/lateral malleolus. PT EVAL FOR work on range of motion gentle strengthening proprioceptive training. Assessment: 28 YO MALE REF TO PT AFTER SUSTAINING A Rt NONDISPLACED, TRANSVERSE FRACTURE THROUGH DISTAL FIBULA/ LATERAL MALLEOLUS WHILE AT WORK ON 06/25/23. HE WORKS 2ND SHIFT, FULL-TIME IN THE [employer] AT [employer], PHYSICALLY DEMANDING, AND HAS BEEN ON LIGHT DUTY SINCE HIS INJURY DATE. THE Pt HAS TRANSITIONED FROM A WALKING BOOT TO ( OF 08/05/23) A LACE-UP SUPPORT, WBAT. HE HAS LIMITED ROMIN HIS ANKLE AND HIP ROTATORS, DECR STRENGTH IN LUMBOPELVIC/ Rt LE, AND MILD SORENESS Rt DISTAL LAT MALL. FUNCTIONALLY, THE Pt HAS DECR EVIN TO DESCENDING STAIRS- HE IS MOTIVATED TO PROGRESS WITH PT AND GRAUALLY REGAIN HIS FUNCTIONAL INDEPENDENCE/ RTW REG DUTY. 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 Manual therapy to restore motion and function. Therapeutic exercise to improve strength and flexibility. Neuromuscular re-education for posture and balance. Therapeutic activities to return to functional activities of daily living. Electronically signed by: HOPE WONG,PT Please sign and return to therapist. Thank you for your referral.
--- NOTE | 2023-10-01 07:40 | MHC.PT.DC ---
[facility] [place] Office [place] Office [place] Office [address] Rosalino Garcias [address] [phone] F: [phone] F: [phone] F: [phone] F: [phone] Physical Therapy Discharge Report Diagnosis: Rt Nondisplaced, transverse fracture through the distal fibula/lateral malleolus. PT EVAL FOR work on range of motion gentle strengthening proprioceptive training. Date of Surgery: Date of Evaluation: 08/13/23 Date of Discharge: 10/01/23 Treatments to Date: 4 Cancellations to Date: 1 No Shows to Date: 1 Discharge Status: Improved Function Independent with HEP Patient Elected to Stop Discharge Summary: THE Pt HAS DEMONSTRATED CONTINUED PROGRESS IN PT, AT LAST ATTENDED APPT HE PERF INCR ACTIVITIES IN A CONTROLLED ENVIRONMENT W/O Rt LACE-UP SUPPORT, AND HE NOTED MILD SORENESS DUE TO INCR MUSCULAR ACTIV AND DENIED PAIN. 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 BENEFITTING FROM [employer] PROPRIOCEPTIVE / FUNCT EX- THE Pt Electronically signed by: HOPE WONG,PT Please sign and return to therapist. Thank you for your referral.
== END 2023-11-16 07:02 | disposition home or self-care (01) ==
LOC: HO.PT 14:00
PROVIDERS: PCP Family Medicine; Visit Provider Physician Assistant
DX: S82.832D Other fracture of upper and lower end of left fibula, subsequent encounter for closed fracture with routine healing (principal)
CPT/HCPCS: 97110; 97140; 97161; 97530

== ENCOUNTER 2023-09-15 05:55 | Outpatient (REF) | payer OTHER, SELFPAY ==
--- NOTE | ~2023-09-15 | XR_ITS ---
EXAMINATION: XR ANKLE, RIGHT CLINICAL INFORMATION: Right ankle pain COMPARISON: Right ankle radiograph 07/08/2023 TECHNIQUE: AP, lateral, and mortise views of the right ankle. FINDINGS: Redemonstrated minimally displaced fracture of the distal fibula. There is interval resorption of the fracture line lucency suggestive of interval healing. However, no bridging callus is identified at this time. Overlying soft tissue swelling is present. Ankle mortise is intact. XR/XR ankle RT min 3V IMPRESSION: Interval healing of distal fibular fracture. No additional fractures.
== END 2023-09-15 05:56 | disposition home or self-care (01) ==
LOC: HO.HOSX 05:55
PROVIDERS: Visit Provider Physician Assistant
DX: M25.571 Pain in right ankle and joints of right foot (principal)
CPT/HCPCS: 73610; 99212

== ENCOUNTER 2023-09-15 13:34 | Outpatient (AMB) | payer OTHER, SELFPAY ==
--- NOTE | 2023-09-15 13:55 | A.OFFVIS_ITS ---
Intake Intake Visit Reasons: ov- right ankle fracture with x-rays Intake Note: Dimas heck 28 year old male presents today for a follow up of right distal fibula fx, DOI 06/15/23. Xrays updated. Patient reports he is doing well, states no pain or concerns Allergies No Known Allergies Allergy (Verified 09/01/23 12:00) HPI ov- right ankle fracture with x-rays HPI Details 28-year-old male who returns to the [facility] today for a follow-up of right ankle fracture, 06/15/23. He states he has no pain and is doing well overall. He finds relief with ibuprofen. He has no other concerns today. [facility] Medical History Diabetes Surgical History History of tonsillectomy Family History Mother Mental health disorder Sister Mental health disorder Brother Mental health disorder Social History Housing: House Patient Tobacco Use Status: Never used Tobacco e-Cigarette/Vaping Use: Never Used Second Hand Smoke Exposure: No service: No Current occupational status: employed Current occupation: [employer] Current occupational exposures/hazards: No Cognitive needs: No Hearing needs: No Vision needs: No Review of Systems Const All systems reviewed & are unremarkable except as noted in HPI and below Physical Exam Const General: cooperative and no acute distress Orientation/consciousness: patient oriented x3 Resp Effort & Inspection: normal respiratory effort and able to speak in complete sentences Cardio Peripheral pulses: Peripheral pulses 2+ throughout Neuro General: patient oriented x3 Extrem Other: Right ankle normal to inspection. No swelling or ecchymosis. He has no tenderness along the lateral malleolus or the soft tissues. Has full range of motion without crepitus or laxity. Neurovascularly intact. Results Reviewed Results Reviewed: X-rays of the right ankle obtained in the office today show interval healing through the distal fibular fracture with ankle mortise intact. Assessment & Plan Assessment & Plan (1) Closed fracture of left distal fibula: Code(s): S82.832A - Other fracture of upper and lower end of left fibula, initial encounter for closed fracture Qualifiers: Encounter type: initial encounter Fracture morphology: other fracture Qualified Code(s): S82.832A - Other fracture of upper and lower end of left fibula, initial encounter for closed fracture Plan He will increase activity as tolerated and return to work on September 18 without restrictions. If symptoms persist or worsens, patient will contact the office, otherwise follow-up as needed. Orders: Orders XR ankle RT min 3V Today M25.571 - Pain in right ankle and joints of right foot Patient Instructions: Scribed for Dione Peraza PA-C, by Rojelio Ramírez quality engineer medical device, on 09/15/2023 at 1:45 PM EST. I, Dione Peraza PA-C, have personally reviewed and agree with the information entered by the scribe. Coding Level of Care Code Est Pt Level 3 (32079) Diagnoses Other closed fracture of distal end of left fibula, initial encounter S82.832A Encounter type: initial encounter Fracture morphology: other fracture
== END 2023-09-15 14:09 | disposition home or self-care (01) ==
PROVIDERS: PCP Family Medicine; Visit Provider Physician Assistant
DX: S82.832D Other fracture of upper and lower end of left fibula, subsequent encounter for closed fracture with routine healing (principal)
CPT/HCPCS: 99213

== ENCOUNTER 2024-01-25 08:47 | Outpatient (AMB) | payer OTHER, SELFPAY ==
--- NOTE | 2024-01-25 08:52 | MHC.PC.OV ---
Vital Signs 01/25/24 08:55 Height 5 ft 6 in Weight 275 lb BMI 44.4 BP 120/62 Blood Pressure Location Lt brachial Position Sitting Pulse 95 Pulse Source Pulse Oximeter Pulse Oximetry (%) 95 Oxygen Delivery Method Room Air Intake Visit Reasons: Follow Up/ Diabetes Intake Note: Patient is here to follow up on DM. 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 Medical Assembler: Not Required per policy Accompanied by: Self / Same As Patient Allergies No Known Allergies Allergy (Verified 01/25/24 08:54) Medication List - Last Reconciled 01/25/24 by Iggy Martinez MD dulaglutide (Trulicity) 0.75 mg (0.5 mL) subcut QWEEK 28 days glipizide 5 mg PO DAILY 30 days ibuprofen (IBU) 800 mg PO Q8H PRN metformin 500 mg PO QAM 30 days Tobacco use date assessed: 01/25/24 Dental Screening Dental Screen Date: 01/25/24 Did you have a dental visit in the last 12 months?: Yes Did you have a dental problem in the last 6 months where you did not have access to dental care?: No Was dental information given to patient?: Patient has dentist HPI Follow Up/ Diabetes HPI Details 28 y/o male presents to f/u diabetes. Had not been able to trial Trulicity last office visit. A1c today 01/25/24 is 7.1%, which improved from 9.9%. He states he is tolerating Trulicity well. He notes he plans to go to the gym and make dietary changes. [facility] Medical History Diabetes Surgical History History of tonsillectomy Family History Mother Mental health disorder Sister Mental health disorder Brother Mental health disorder Social History (Updated 01/25/24 @ 09:02 by MAXIMUS Barrett) Housing: House Alcohol intake: never Patient Tobacco Use Status: Never used Tobacco e-Cigarette/Vaping Use: Never Used Second Hand Smoke Exposure: No Substance Use Type: Marijuana Substance Use Frequency: Daily service: No Current occupational status: employed Current occupation: [employer] Current occupational exposures/hazards: No Cognitive needs: No Hearing needs: No Vision needs: No Questionnaire Thrive Questionnaire Date Thrive assessed: 09/01/23 LISA-7 AMB Questionnaire LISA-7 Date LISA - 7 assessed: 09/01/23 Source: Developed by Drs. Dimas Horton, Kimberly Downey, Bakari Lopez and colleagues, with an educational kobe from [employer]. Review of Systems Const Denies chills, Denies fatigue, Denies fever(s), Denies headache(s) and Denies weakness ENT Denies dizziness and Denies headache(s) Card Denies dyspnea Resp Denies cough, Denies dyspnea, Denies wheezing and Denies other (shortness of breath) Musc Denies numbness and Denies tingling Neuro Denies dizziness, Denies headache(s), Denies numbness, Denies tingling and Denies weakness Psych Denies anxiety and Denies depression Endo Denies fatigue Aller/Immun Denies wheezing Physical exam (Primary Care) Vital Signs: Last Vital Signs Pulse 95 01/25/24 08:55 BP 120/62 01/25/24 08:55 Pulse Ox 95 01/25/24 08:55 Oxygen Delivery Method Room Air 01/25/24 08:55 BMI result Body Mass Index 44.4 Tobacco/Smoking Status: Tobacco use Status Tobacco use date assessed 01/25/24 01/25/24 09:04 Patient Tobacco Use Status Never used Tobacco 01/25/24 09:02 e-Cigarette/Vaping Use Never Used 01/25/24 09:02 Thrive Assessment: Date of Thrive Assessment Date Thrive assessed 09/01/23 01/25/24 08:53 Const General: well developed; No acute distress Nutritional Appearance: well nourished and obese morbidly obese Orientation/consciousness: [facility]: Yes normocephalic and Yes atraumatic Eyes General: appearance normal, both eyes and all related structures Pupils: Equal, round and reactive pupils present EOM: EOMs intact bilaterally Resp Effort & Inspection: normal respiratory effort Auscultation: clear to auscultation bilaterally Cardio Rate: regular rate Rhythm: regular rhythm Heart sounds: S1 normal heart sound present, S2 normal heart sound present, no gallops, no murmurs and no rubs Neuro General: patient oriented x3 and gait normal Cranial nerves: Yes Equal, round and reactive pupils present Psych Affect: normal affect Results AMB Hemoglobin A1c AMB Hemoglobin A1c 7.1 % Last Edit by MAXIMUS Barrett on 01/25/24 09:15 Assessment and Plan Assessment & Plan (1) Diabetes: Code(s): E11.9 - Type 2 diabetes mellitus without complications Plan: A1c?much?improved?from?9.9%?to?7.1%?after?starting?Trulicity.??Goal?is?less?than?7.0%. Nearly?at?goal Continue?metformin?and?glipizide.??Will?increase?Trulicity?from?0.75?mg?weekly?to?1.5?mg?weekly Continue?diabetic?diet Discussed?weight?loss-see?below (2) Morbid obesity with BMI of 40.0-44.9, adult: Code(s): E66.01 - Morbid (severe) obesity due to excess calories; Z68.41 - Body mass index [BMI] 40.0-44.9, adult Plan: Patient?plans?to?work?on?weight?loss?with?meal?replacement?shakes. I?also?encouraged?healthy?diet?with?plenty?of?vegetables?for?his?other?meals.??Watch?portion?sizes. Continue?active?lifestyle?and?get?plenty?of?exercise Can?consider?a?daily?multivitamin?as?well Patient?would?like?a?referral?to?weight?management-referred He?also?inquired?about?medications?for?weight?loss?and?we?briefly?discussed?Ozempic.??Could?consider?this?once?he?is?at?goal?with?diabetes.??We?can?readdress?at?next?visit. Orders: Orders AMB Hemoglobin A1c Today E11.65 - Type 2 diabetes mellitus with hyperglycemia Medications: Changed From dulaglutide (Trulicity) 0.75 mg (0.5 mL) subcut QWEEK 28 days 2 mL 2RF To dulaglutide 1.5 mg (0.5 mL) subcut QWEEK 28 days 2 mL 2RF Coding Level of Care Code Est Pt Level 3 (73634) Diagnoses Diabetes E11.9 Morbid obesity with BMI of 40.0-44.9, adult E66.01; Z68.41
[2024-01-25 08:55] VITALS: BP 120/62; PULSE 95; O2SAT 95; BMI 44.4
== END 2024-01-25 09:31 | disposition home or self-care (01) ==
PROVIDERS: PCP Family Medicine; Visit Provider Family Medicine
DX: E11.9 Type 2 diabetes mellitus without complications (principal); E66.01 Morbid (severe) obesity due to excess calories; Z68.41 Body mass index [BMI] 40.0-44.9, adult; E11.65 Type 2 diabetes mellitus with hyperglycemia
CPT/HCPCS: 83036; 99213

== ENCOUNTER 2024-05-04 08:17 | Outpatient (AMB) | payer OTHER, SELFPAY ==
--- NOTE | 2024-05-04 08:51 | A.OFFPC_ITS ---
Vital Signs 05/04/24 09:03 Height 5 ft 6 in Weight 244 lb 2 oz BMI 39.4 BP 108/60 Blood Pressure Location Lt brachial Position Sitting Respiration 16 Pulse 91 Pulse Source Pulse Oximeter Temp 98.5 F Temp Source Oral Pulse Oximetry (%) 96 Oxygen Delivery Method Room Air Intake Visit Reasons: f/u diabetes and weight loss Allergies No Known Allergies Allergy (Verified 01/25/24 08:54) Medication List - Last Reconciled 05/04/24 by Iggy Martinez MD dulaglutide 1.5 mg (0.5 mL) subcut QWEEK 28 days glipizide 5 mg PO DAILY 30 days ibuprofen (IBU) 800 mg PO Q8H PRN metformin 500 mg PO QAM 30 days Tobacco use date assessed: 01/25/24 Dental Screening Dental Screen Date: 01/25/24 HPI f/u diabetes and weight loss HPI Details 29 y/o male presents to f/u diabetes, we ight loss. A1c today 5.6%. He is on metformin 500mg, glipizide 5mg, dulaglutide. Has lost some weight since last office visit - 275 lbs to 244 lbs. Notes diet has improved. He goes to the gym for exercise. [facility] Medical History Diabetes Surgical History History of tonsillectomy Family History Mother Mental health disorder Sister Mental health disorder Brother Mental health disorder Social History (Updated 01/25/24 @ 09:02 by MAXIMUS Barrett) Housing: House Alcohol intake: never Patient Tobacco Use Status: Never used Tobacco e-Cigarette/Vaping Use: Never Used Second Hand Smoke Exposure: No Substance Use Type: Marijuana service: No Current occupational status: employed Current occupation: [employer] Current occupational exposures/hazards: No Cognitive needs: No Hearing needs: No Vision needs: No Questionnaire PHQ-9 Over the last 2 weeks, how often have you been bothered by any of the following problems? 1. Little interest or pleasure in doing things: not at all 2. Feeling down, depressed, or hopeless: not at all 3. Trouble falling or staying asleep, or sleeping too much: not at all 4. Feeling tired or having little energy: not at all 5. Poor appetite or overeating: not at all 6. Feeling bad about yourself - or that you are a failure or have let yourself or your family down: not at all 7. Trouble concentrating on things, such as reading the newspaper or watching television: not at all 8. Moving or speaking so slowly that other people could have noticed. Or the opposite - being so fidgety or restless that you have been moving around a lot more than usual: not at all 9. Thoughts that you would be better off or of hurting yourself in some way: not at all Total score: 0 Source: Developed by Drs. Dimas Horton, Kimberly Downey, Bakari Lopez and colleagues, with an educational kobe from [employer]. Thrive Questionnaire Date Thrive assessed: 09/01/23 I am a: Patient What is your living situation today?: I have a steady place to live Within the past 12 months, did the food you bought not last and you didn't have the money to get more?: Never true Within the past 12 months, did you worry whether your food would run out before you got money to buy more?: Never true Do you have trouble paying for medicines?: No Do you have trouble getting transportation to medical appointments?: No Do you have trouble paying your heating and electricity bill?: No Do you have trouble taking care of your child, family member or friend?: No Do you have trouble with day-to-day activities such as bathing, preparing meals, shopping, managing finances, etc.?: No Are you currently unemployed and looking for a job?: No Are you interested in more education?: No Please select the resources that you would like help with: None Currently or been in a relationship where the following occur: I choose not to answer THRIVE Score: 0 AUDIT C Alcohol Use Questionnaire (AUDIT-C) 1. How often do you have a drink containing alcohol?: Never Total Score: 0 LISA-7 AMB Questionnaire LISA-7 Date LISA - 7 assessed: 09/01/23 Feeling nervous, anxious, or on edge: 0 = Not at all Not being able to stop or control worryin = Not at all Worrying too much about different things: 0 = Not at all Trouble relaxin = Not at all Being so restless that it is hard to sit still: 0 = Not at all Becoming easily annoyed or irritable: 0 = Not at all Feeling afraid as if something awful might happen: 0 = Not at all Total LISA-7 score (0-4 normal; 5-9 mild; 10-14 moderate; 15-21 severe): 0 Source: Developed by Drs. Dimas Horton, Kimberly Downey, Bakari Lopez and colleagues, with an educational kobe from [employer]. Review of Systems Const Denies chills, Denies fatigue, Denies fever(s), Denies headache(s) and Denies weakness ENT Denies dizziness and Denies headache(s) Card Denies dyspnea Resp Denies cough, Denies dyspnea, Denies wheezing and Denies other (shortness of breath) Musc Denies numbness and Denies tingling Neuro Denies dizziness, Denies headache(s), Denies numbness, Denies tingling and Denies weakness Psych Denies anxiety and Denies depression Endo Denies fatigue Aller/Immun Denies wheezing Physical exam (Primary Care) Vital Signs: Last Vital Signs Temp 98.5 F 05/04/24 09:03 Pulse 91 05/04/24 09:03 Resp 16 05/04/24 09:03 BP 108/60 05/04/24 09:03 Pulse Ox 96 05/04/24 09:03 Oxygen Delivery Method Room Air 05/04/24 09:03 BMI result Body Mass Index 39.4 Tobacco/Smoking Status: Tobacco use Status Tobacco use date assessed 01/25/24 05/04/24 08:53 Patient Tobacco Use Status Never used Tobacco 05/04/24 08:53 e-Cigarette/Vaping Use Never Used 05/04/24 08:53 PHQ-9: PHQ-9 Score PHQ-9: Total score 0 05/04/24 09:34 Thrive Assessment: Date of Thrive Assessment Date Thrive assessed 09/01/23 05/04/24 08:53 Currently or been in a relationship where the following occur: I choose not to answer Const General: well developed; No acute distress Nutritional Appearance: well nourished Orientation/consciousness: patient oriented x3 [facility] Head: Yes normocephalic and Yes atraumatic Eyes General: appearance normal, both eyes and all related structures Pupils: Equal, round and reactive pupils present EOM: EOMs intact bilaterally Resp Effort & Inspection: normal respiratory effort Neuro General: patient oriented x3 and gait normal Cranial nerves: Yes Equal, round and reactive pupils present Psych Affect: normal affect Coding Level of Care Code Est Pt Level 3 (59953) Diagnoses Diabetes E11.9 Morbid obesity with BMI of 40.0-44.9, adult E66.01; Z68.41 Assessment & Plan Assessment & Plan (1) Diabetes: Code(s): E11.9 - Type 2 diabetes mellitus without complications Category: Medical Plan: A1c?now?well?controlled?at?5.6%.??Goal?is?less?than?7.0% Continue?current?medication?regimen Continue?weight?loss?and?diabetic?diet Continue?exercise Last?eye?exam?was?about?13?months?ago?so?I?encouraged?him?to?call?his?eye?doctor ?for?an?appointment. (2) Morbid obesity with BMI of 40.0-44.9, adult: Code(s): E66.01 - Morbid (severe) obesity due to excess calories; Z68.41 - Body mass index [BMI] 40.0-44.9, adult Category: Medical Plan: Ongoing?weight?loss?and?I?encouraged?this. Had?referred?him?to?the?weight?management?program - he?is?on?a wait?list
[2024-05-04 09:03] VITALS: BP 108/60; PULSE 91; RESP 16; TEMP 36.9; O2SAT 96; BMI 39.4
== END 2024-05-04 09:39 | disposition home or self-care (01) ==
LOC: HO.HMCFM 08:17
PROVIDERS: PCP Family Medicine; Visit Provider Family Medicine
DX: E11.9 Type 2 diabetes mellitus without complications (principal); E66.01 Morbid (severe) obesity due to excess calories; Z68.41 Body mass index [BMI] 40.0-44.9, adult

== ENCOUNTER → 2024-05-04 08:17 | Outpatient (BNVA) | payer OTHER, SELFPAY | PROVIDERS: PCP Family Medicine; Visit Provider Family Medicine | DX: E11.9 Type 2 diabetes mellitus without complications (principal); Z68.41 Body mass index [BMI] 40.0-44.9, adult | CPT/HCPCS: 83036; 99212 ==

== ENCOUNTER 2024-08-07 08:17 | Outpatient (AMB) | payer OTHER, SELFPAY ==
--- NOTE | 2024-08-07 08:27 | MHC.PC.OV ---
Vital Signs 08/07/24 08:32 Height 5 ft 6 in Weight 246 lb BMI 39.7 BP 120/72 Blood Pressure Location Lt brachial Position Sitting Pulse 92 Pulse Source Pulse Oximeter Pulse Oximetry (%) 95 Oxygen Delivery Method Room Air Intake Visit Reasons: dm follow up Intake Note: pt is here for DM f/up, a1c done in office today Allergies No Known Allergies Allergy (Verified 08/07/24 08:34) Tobacco use date assessed: 08/07/24 Dental Screening Dental Screen Date: 08/07/24 Did you have a dental visit in the last 12 months?: Yes Did you have a dental problem in the last 6 months where you did not have access to dental care?: No Was dental information given to patient?: Patient has dentist HPI dm follow up HPI Details 29 y/o male presents to f/u diabetes. Lat A1c 5.6% in April. A1c today 08/07/24 is 6.7%. He is on metformin 500mg, glipizide 5mg, dulaglutide. Has complaints of L elbow pain. HPI Comments History of Present Illness Details Documentation assistance for Iggy Martinez MD, was provided by Jarvis Guillen,? Real Estate Acquisition Analyst on 08/07/2024 at 8:47 AM EST. I, Dr. Martinez, have read, observed, and verified documentation. ?? [facility] Medical History Diabetes Surgical History History of tonsillectomy Family History Mother Mental health disorder Sister Mental health disorder Brother Mental health disorder Social History Housing: House Alcohol intake: never Patient Tobacco Use Status: Never used Tobacco e-Cigarette/Vaping Use: Never Used Second Hand Smoke Exposure: No Substance Use Type: Marijuana service: No Current occupational status: employed Current occupation: [employer] Current occupational exposures/hazards: No Cognitive needs: No Hearing needs: No Vision needs: No Questionnaire PHQ-9 Over the last 2 weeks, how often have you been bothered by any of the following problems? 1. Little interest or pleasure in doing things: not at all 2. Feeling down, depressed, or hopeless: not at all 3. Trouble falling or staying asleep, or sleeping too much: several days 4. Feeling tired or having little energy: not at all 5. Poor appetite or overeating: not at all 6. Feeling bad about yourself - or that you are a failure or have let yourself or your family down: not at all 7. Trouble concentrating on things, such as reading the newspaper or watching television: not at all 8. Moving or speaking so slowly that other people could have noticed. Or the opposite - being so fidgety or restless that you have been moving around a lot more than usual: not at all 9. Thoughts that you would be better off or of hurting yourself in some way: not at all Total score: 1 Source: Developed by Drs. Dimas Horton, Kimberly Downey, Bakari Lopez and colleagues, with an educational kobe from [employer]. Thrive Questionnaire Date Thrive assessed: 08/07/24 I am a: Patient What is your living situation today?: I have a steady place to live Within the past 12 months, did the food you bought not last and you didn't have the money to get more?: Never true Within the past 12 months, did you worry whether your food would run out before you got money to buy more?: Never true Do you have trouble paying for medicines?: No Do you have trouble getting transportation to medical appointments?: No Do you have trouble paying your heating and electricity bill?: No Do you have trouble taking care of your child, family member or friend?: No Do you have trouble with day-to-day activities such as bathing, preparing meals, shopping, managing finances, etc.?: No Are you currently unemployed and looking for a job?: No Are you interested in more education?: Yes Please select the resources that you would like help with: None Currently or been in a relationship where the following occur: No concerns reported THRIVE Score: 0 AUDIT C Alcohol Use Questionnaire (AUDIT-C) 1. How often do you have a drink containing alcohol?: Monthly or less 2. How many drinks containing alcohol do you have on a typical day when you are drinking?: 3 or 4 3. How often do you have six or more drinks on one occasion?: Less than monthly Total Score: 3 LISA-7 AMB Questionnaire LISA-7 Date LISA - 7 assessed: 09/01/23 Feeling nervous, anxious, or on edge: 0 = Not at all Not being able to stop or control worryin = Not at all Worrying too much about different things: 0 = Not at all Trouble relaxin = Not at all Being so restless that it is hard to sit still: 0 = Not at all Becoming easily annoyed or irritable: 0 = Not at all Feeling afraid as if something awful might happen: 0 = Not at all Total LISA-7 score (0-4 normal; 5-9 mild; 10-14 moderate; 15-21 severe): 0 Source: Developed by Drs. Dimas Horton, Kimberly Downey, Bakari Lopez and colleagues, with an educational kobe from [employer]. Review of Systems Const Denies chills, Denies fatigue, Denies fever(s), Denies headache(s) and Denies weakness ENT Denies dizziness and Denies headache(s) Card Denies chest pain, Denies lightheadedness, Denies dyspnea and Denies other (Palpitations) Resp Denies cough, Denies dyspnea, Denies wheezing and Denies other ( shortness of breath) Musc Denies numbness and Denies tingling Neuro Denies dizziness, Denies headache(s), Denies numbness, Denies tingling, Denies paresthesias and Denies weakness Psych Denies anxiety and Denies depression Endo Denies fatigue Aller/Immun Denies wheezing Physical exam (Primary Care) Vital Signs: Last Vital Signs Pulse 92 08/07/24 08:32 BP 120/72 08/07/24 08:32 Pulse Ox 95 08/07/24 08:32 Oxygen Delivery Method Room Air 08/07/24 08:32 BMI result Body Mass Index 39.7 Tobacco/Smoking Status: Tobacco use Status Tobacco use date assessed 08/07/24 08/07/24 08:35 Patient Tobacco Use Status Never used Tobacco 08/07/24 08:27 e-Cigarette/Vaping Use Never Used 08/07/24 08:27 PHQ-9: PHQ-9 Score PHQ-9: Total score 1 08/07/24 08:35 Thrive Assessment: Date of Thrive Assessment Date Thrive assessed 08/07/24 08/07/24 08:27 Currently or been in a relationship where the following occur: No concerns reported Const General: no acute distress and well developed Nutritional Appearance: well nourished Orientation/consciousness: patient oriented x3 [facility] Head: Yes normocephalic and Yes atraumatic Eyes General: appearance normal, both eyes and all related structures Pupils: Equal, round and reactive pupils present EOM: EOMs intact bilaterally Resp Effort & Inspection: normal respiratory effort Auscultation: clear to auscultation bilaterally Cardio Rate: regular rate Rhythm: regular rhythm Heart sounds: S1 normal heart sound present, S2 normal heart sound present, no gallops, no murmurs and no rubs Neuro General: patient oriented x3 and gait normal Cranial nerves: Yes Equal, round and reactive pupils present Psych Affect: normal affect Results AMB Hemoglobin A1c AMB Hemoglobin A1c 6.7 % Last Edit by Adam Munoz CMA on 08/07/24 08:44 Results Reviewed Results Reviewed: Laboratory Last Values Hgb A1c (Clinic) 6.7 % (4.0-6.0) H 08/07/24 08:43 Coding Level of Care Code Est Pt Level 4 (75817) Diagnoses Diabetes E11.9 Left elbow pain M25.522 Hypercholesterolemia E78.00 Assessment & Plan Assessment & Plan (1) Diabetes: Code(s): E11.9 - Type 2 diabetes mellitus without complications Category: Medical Plan: See?climbed?to?6.7%?but?still?at?goal.??Goal?is?less?than?7.0% Continue?current?medication?regimen?and?work?at?consistency. Continue?diabetic?diet Reminded?patient?to?call?his?eye?doctor?for?a?diabetic?retinal?exam?as?is?due?for?this (2) Left elbow pain: Code(s): M25.522 - Pain in left elbow Category: Medical Plan: Patient?were?lifting?heavy?items Appears?to?have?strain of L distal triceps muscle Advised?relative?rest?and?I?will?give?her?a?note?to?be?out?of?work?for?the?next?4?days Ice Will?give?a?brace?for?his?elbow If?improving?will?refer?to PT (3) Hypercholesterolemia: Code(s): E78.00 - Pure hypercholesterolemia, unspecified Category: Medical Plan: Has?had?elevated?cholesterol?levels?in?the?past?and?has?not?had?this?rechecked?in?quite?some?time Weight?has?increased?and?patient?notes?that?he?has?had?dietary?indiscretions?through?the?holidays Recheck?lipids Briefly?discussed?that?if?lipids?are?still?high?should?consider?medication Orders: Orders Lipid Panel Today E78.00 - Pure hypercholesterolemia, unspecified, Z00.00 - Encounter for general adult medical examination without abnormal findings Comprehensive [place]. Panel Fast Today E78.00 - Pure hypercholesterolemia, unspecified, Z00.00 - Encounter for general adult medical examination without abnormal findings AMB Hemoglobin A1c Today Z13.9 - Encounter for screening, unspecified Medications: New arm brace (WILBER Elbow Brace) L Elbow Brace. Daily As directed, 28 days 1 ea 0RF M25.522 - Pain in left elbow, S46.319A - Strain of muscle, fascia and tendon of triceps, unspecified arm, initial encounter Refilled dulaglutide 1.5 mg (0.5 mL) subcut QWEEK 28 days 2 mL 2RF
[2024-08-07 08:32] VITALS: BP 120/72; PULSE 92; O2SAT 95; BMI 39.7
== END 2024-08-07 09:01 | disposition home or self-care (01) ==
PROVIDERS: PCP Family Medicine; Visit Provider Family Medicine
DX: E11.9 Type 2 diabetes mellitus without complications (principal); M25.522 Pain in left elbow; E78.00 Pure hypercholesterolemia, unspecified; Z13.9 Encounter for screening, unspecified

== ENCOUNTER → 2024-08-07 08:17 | Outpatient (BNVA) | payer OTHER, SELFPAY | PROVIDERS: PCP Family Medicine; Visit Provider Family Medicine | DX: E11.9 Type 2 diabetes mellitus without complications (principal); E78.00 Pure hypercholesterolemia, unspecified; M25.522 Pain in left elbow | CPT/HCPCS: 83036; 99212 ==

== ENCOUNTER 2024-08-22 07:17 | Outpatient (REF) | payer OTHER, SELFPAY ==
[2024-08-22 09:09] LABS: Alanine Aminotransferase 47 U/L (0-40); Albumin Level 4.8 g/dL (3.5-5.0); Alkaline Phosphatase 44 U/L (39-117); Anion Gap 12 (12-20); Aspartate Amino Transferase 54 U/L (5-37); Blood Urea Nitrogen 14 mg/dL (9-16); Calcium 9.5 mg/dL (8.4-10.2); Carbon Dioxide 26 mmol/L (22-29); Chloride 106 mmol/L (96-108); Cholesterol 195 mg/dL (<200); Estimated Glomerular Filt Rate > 60; Glucose Fasting 76 mg/dL (60-99); HDL Cholesterol 48 mg/dL (>40); LDL Cholesterol Calculated 136 mg/dL (<100); Potassium 4.2 mmol/L (3.3-5.1); Sodium 140 mmol/L (135-145); Total Protein 7.6 g/dL (6.5-8.0); Triglycerides 57 mg/dL (<150)
== END 2024-08-22 07:18 | disposition home or self-care (01) ==
LOC: HO.LAB 07:17
PROVIDERS: PCP Family Medicine; Visit Provider Family Medicine
DX: Z00.00 Encounter for general adult medical examination without abnormal findings (principal); E78.00 Pure hypercholesterolemia, unspecified
CPT/HCPCS: 36415; 80053; 80061